=== PATIENT | male | born 1960 | race Caucasian/White ===

== ENCOUNTER 2020-03-24 20:10 | Emergency (ER) | payer BC ==
[2020-03-24 20:26] VITALS: TEMP 97.8
[2020-03-24] MEDS ORDERED: ONDANSETRON 4 MG/2 ML VIAL IVP STA (20:54)
[2020-03-24] MEDS ORDERED: SODIUM CHLORIDE 0.9% 1,000 ML IV STA (20:54)
[2020-03-24] MEDS ORDERED: SODIUM CHLORIDE 0.9% 500 ML 500 ML IV STA (20:54)
--- NOTE | 2020-03-24 20:54 | ED ---
Chest Pain HPI - General Chief Complaint: Chest Pain Stated Complaint: Chest Pains Time Seen by Provider: 03/24/20 20:31 Source: patient, RN notes reviewed, old records reviewed Mode of arrival: wheelchair Limitations: no limitations - History of Present Illness Initial Comments: This is a 59-year-old male DF for evaluation patient Dese for evaluation of chest pain and left knee pain concern for DVT. Patient is concerned is having this left-sided chest pain associated with left lower Shorty pain and swelling. Patient does have history of arthritis but states this maybe mildly different did see orthopedics earlier in the week and was told that he notices increasing right-sided swelling. MD Complaint: chest pain, other (Left lower Shorty pain and swelling) -: days(s) Onset: during rest, during exertion Pain Location: left chest Pain Radiation: abdomen Severity: mild Severity scale (1-10): 3 Quality: tightness Consistency: constant Improves With: nothing Worsens With: nothing Anginal Symptoms: dyspnea Treatments Prior to Arrival: none - Related Data Home Medications Medication Instructions Recorded Confirmed Diclofenac Sodium [Voltaren] 75 mg PO BID 03/24/20 03/24/20 Allergies Allergy/AdvReac Type Severity Reaction Status Date / Time No Known Allergies Allergy Verified 03/24/20 21:41 Review of Systems ROS Statement: Those systems with pertinent positive or pertinent negative responses have been documented in the HPI. ROS Other: All systems not noted in ROS Statement are negative. EKG Findings - EKG Comments: EKG Findings:: EKG is sinus rhythm 75 TX 150 QRS 100 QTc 419 Past Medical History Past Medical History: Hyperlipidemia History of Any Multi-Drug Resistant Organisms: None Reported Past Surgical History: Orthopedic Surgery Past Psychological History: No Psychological Hx Reported Smoking Status: Current every day smoker Past Alcohol Use History: Occasional Past Drug Use History: None Reported General Exam Limitations: no limitations General appearance: alert, in no apparent distress Head exam: Present: atraumatic, normocephalic, normal inspection Eye exam: Present: normal appearance, PERRL, EOMI. Absent: scleral icterus, conjunctival injection, periorbital swelling ENT exam: Present: normal exam, mucous membranes moist Neck exam: Present: normal inspection. Absent: tenderness, meningismus, lymphadenopathy Respiratory exam: Present: normal lung sounds bilaterally. Absent: respiratory distress, wheezes, rales, rhonchi, stridor Cardiovascular Exam: Present: regular rate, normal rhythm, normal heart sounds. Absent: systolic murmur, diastolic murmur, rubs, gallop, clicks GI/Abdominal exam: Present: soft, normal bowel sounds. Absent: distended, tenderness, guarding, rebound, rigid Extremities exam: Present: normal inspection, full ROM, normal capillary refill. Absent: tenderness, pedal edema, joint swelling, calf tenderness Back exam: Present: normal inspection Neurological exam: Present: alert, oriented X3, CN II-XII intact Psychiatric exam: Present: normal affect, normal mood Skin exam: Present: warm, dry, intact, normal color. Absent: rash Course Vital Signs 03/24/20 03/24/20 03/24/20 20:23 21:30 22:00 Temperature 97.8 F Pulse Rate 91 86 89 Respiratory 18 18 27 H Rate Blood Pressure 114/72 114/83 108/90 O2 Sat by Pulse 98 97 99 Oximetry 03/24/20 23:00 Temperature Pulse Rate 92 Respiratory 24 Rate Blood Pressure 127/85 O2 Sat by Pulse 98 Oximetry - Reevaluation(s) Reevaluation #1: 03/24/20 21:47 Medical record is reviewed Patient denying any specific chest pain or shortness of breath currently Patient is informed of all resolved here in the ER, questions are answered patient states he feels good with discharge home Chest Pain MDM - MDM 59 male with nonspecific chest pain left lower extremity edema. Likely related to arthritis, ultrasound as well as CT of chest is negative here in the ER, patient can be discharged home Disposition Clinical Impression: Atypical chest pain Disposition: HOME SELF-CARE Condition: Good Instructions (If sedation given, give patient instructions): Chest Pain (ED), Leg Edema (ED) Is patient prescribed a controlled substance at d/c from ED?: No Referrals: Chao Bryant DO [Primary Care Provider] - 1-2 days
[2020-03-24 21:12] LABS: Basophils # (A) 0.1 k/uL (0-0.2); Basophils % (A) 1 %; Eosinophils # (A) 0.3 k/uL (0-0.7); Eosinophils % (A) 4 %; HCT 43.1 % (39.0-53.0); Lymphocytes # (A) 2.8 k/uL (1.0-4.8); Lymphocytes % (A) 38 %; MCH 31.2 pg (25.0-35.0); MCHC 32.4 g/dL (31.0-37.0); MCV 96.3 fL (80.0-100.0); Mean Platelet Volume 6.2; Monocytes # (A) 0.6 k/uL (0-1.0); Monocytes % (A) 8 %; Neutrophils # (A) 3.4 k/uL (1.3-7.7); Neutrophils % (A) 47 %; Platelet Count 370 k/uL (150-450); RBC 4.47 m/uL (4.30-5.90); RDW 12.3 % (11.5-15.5); WBC 7.3 k/uL (3.8-10.6)
[2020-03-24 21:20] LABS: Calcium 9.3 mg/dL (8.4-10.2); Magnesium 2.2 mg/dL (1.6-2.3); Potassium 4.1 mmol/L (3.5-5.1); Total Bilirubin 0.6 mg/dL (0.2-1.3); Total Protein 6.6 g/dL (6.3-8.2)
[2020-03-24 21:27] LABS: INR 0.9 (<1.2); Partial Thromboplastin Time 25.4 sec (22.0-30.0); Prothrombin Time 9.4 sec (9.0-12.0)
--- NOTE | 2020-03-24 21:39 | US ---
EXAMINATION TYPE: US venous doppler duplex LE LT DATE OF EXAM: 03/24/2020 9:32 PM COMPARISON: NONE CLINICAL HISTORY: DVT. R/O DVT. Swelling x 4 days. No hx of DVT. Patient does not take blood thinners . SIDE PERFORMED: Left TECHNIQUE: The lower extremity deep venous system is examined utilizing real time linear array sonog regis with graded compression, doppler sonography and color-flow sonography. VESSELS IMAGED: External Iliac Vein (EIV) Common Femoral Vein Deep Femoral Vein Greater Saphenous Vein * Femoral Vein Popliteal Vein Small Saphenous Vein * Proximal Calf Veins (* superficial vessels) FINDINGS: No direct or indirect evidence of DVT in veins imaged at this time from prox calf veins to EIV. IMPRESSION: NEGATIVE FOR DVT, LEFT LOWER EXTREMITY.
--- NOTE | 2020-03-24 21:58 | XR ---
EXAMINATION: XR chest 2V DATE AND TIME: 03/24/2020 9:37 PM CLINICAL INDICATION: PHH; Weakness TECHNIQUE: Departmental protocol COMPARISON: None FINDINGS: There is a small ill-defined peribronchial added opacity in the right lower lobe, seen best on the la teral radiograph, but also seen in the infrahilar position on the frontal radiograph. The finding lik nicola clinical diagnosis of early bronchopneumonia, but the radiologic differential diagnosis includes subsegmental atelectasis. The lungs are otherwise clear and well-expanded. The pleural spaces are negative. The cardiac silhouette is not enlarged. The remainder of the mediastinal silhouette is unremarkable. The skeletal structures and soft tissues are negative for acute findings. IMPRESSION: Mild right lower lobe peribronchial added opacity can correlate with a clinical diagnosis of early br onchopneumonia.
[2020-03-24] MEDS ORDERED: KETOROLAC 15 MG/ML 1 ML VIAL IVP STA (22:17)
[2020-03-24] MEDS ORDERED: AZITHROMYCIN 500 MG in SODIUM CHLORIDE 0.9% 250 ML IVPB STA (22:17)
--- NOTE | 2020-03-24 23:12 | CT ---
EXAMINATION TYPE: CT angio chest DATE OF EXAM: 03/24/2020 COMPARISON: None HISTORY: Chest pain x5 days, leg swelling. Pt denies cardiac hx. CT DLP: 352.3 mGycm Automated exposure control for dose reduction was used. CONTRAST: Performed with IV Contrast, patient injected with 100 mL of Isovue 370. There are 3-D post processed images. The lungs are clear of consolidation. There is small linear density in the right middle lobe consiste nt with subsegmental atelectasis. There is mild subsegmental atelectasis posterior lung bases. There is no pleural effusion. There is no evidence of a pulmonary mass. Heart size is normal. There is no p ericardial effusion. There is no mediastinal adenopathy. There are no hilar masses. Thoracic aorta is intact. There is no aneurysm or dissection. There is normal contrast opacification of the pulmonary arteries. There are no filling defects. There is minimal thoracic dextroscoliosis. Thoracic vertebra appear intact. Upper abdominal soft tissues a re intact. IMPRESSION: No evidence of pulmonary embolism. Mild subsegmental atelectasis.
[2020-03-24 23:18] VITALS: BP 127/85; PULSE 92; RESP 24
== END 2020-03-24 23:54 | disposition home or self-care (01) ==
LOC: EC 20:10
DX: R07.89 Other chest pain (principal); R60.0 Localized edema; F17.200 Nicotine dependence, unspecified, uncomplicated; Z79.1 Long term (current) use of non-steroidal anti-inflammatories (NSAID)
CPT/HCPCS: 99285; 96365; 96375 ×2; 96361; 36415; 93005; 80053; 82550; 83735; 84100; 84484; 85025; 85610; 85730; 71046; 93971; 71275; J2405; J0456; J1885; Q9967